=== PATIENT | female | born 1930 | race African-American/Black ===

== ENCOUNTER 2016-08-07 07:17 | Emergency (ER) ==
--- NOTE | 2016-08-07 09:17 | ED EKG INTERP ---
EKG Interpretation - EKG Time of EKG reading by physician:: 08:56 EKG Read and Signed by:: Alfonso Colon EKG Interpretation (*Must complete 3 of following elements*): Abnormal ( nonspecific T wave abnormality) Rate: 48 Rhythm: sinus bradycardia with sinus arrhythmia Comments: minimal voltage criteria for LVH, may be normal variant Attestation - Scribe Verification/Attestation Scribe:: Rosa Fall Acting as Scribe for:: Alfonso Colon Scribe documention review:: This chart was documented by a scribe and accurately reflects the service the provider performed and the decisions made by the provider.
--- NOTE | 2016-08-07 09:55 | PROVIDER DOCUMENTATION ---
HPI-Musculoskeletal Pain/Inj - GENERAL Source: patient - HX OF PRESENT ILLNESS-MUSKULOSKELTAL Quality of Pain: reports: aching Severity in ED: mild Onset/Duration: unsure Timing: still present, intermittent Modifying Factors: improves with: nothing Any recent injury?: No Locality of Occurance: Home Similar Symptoms Previously?: Yes Recently seen or treated by another doctor?: No - FALL INJURY Location of Pain/Injury: reports: none - TRUNK INJURY Location of Injury(s)/Pain: reports: chest (r side), ribs (R side), pelvis (R side) Context / Method of Injury: reports: none Associated Symptoms: reports: arm pain (R), chest pain (R side). denies: nausea /vomiting, shortness of breath, sensory/motor loss, pain with breathing - HIP/PELVIS PAIN/INJURY Hip Pain Location: reports: hip (R) Pain Radiation: reports: feet (R), lower legs (R), upper legs (R) Context / Method of Injury: reports: unknown Associated Symptoms: reports: weakness in legs/feet (R). denies: loss of bladder control, loss of bowel control, lower back pain, muscle spasms, numbness in legs/feet, sensory/motor loss, tingling in legs/feet - LOWER EXTREMITY PAIN/INJURY Lower Extremities Pain: hip: right, leg: right, foot: right Context / Method of Injury: reports: unknown Associated Symptoms: reports: weakness in legs/feet (R). denies: loss of bladder control, loss of bowel control, lower back pain, muscle spasms, numbness in legs/feet, sensory/motor loss, tingling in legs/feet - UPPER EXTREMITY PAIN/INJURY Extremities Pain Location: shoulder: right, arm: right, elbow: right, forearm: right, wrist: right, hand: right Context / Method of Injury: reports: unknown Associated Symptoms: reports: weakness in upper ext (R). denies: muscle spasms , numbness in upper ext, sensory/motor loss, tingling in upper ext <Rosa Fall - Last Filed: 08/07/16 13:11> <Alfonso Colon - Last Filed: 08/07/16 13:13> - GENERAL Chief Complaint: General Adult Stated Complaint: SOB Time Seen by Provider: 08/07/16 08:14 - HX OF PRESENT ILLNESS-MUSKULOSKELTAL Nature of Presenting Problem: Pt is 85 y/o F presents to the ED with R side pain. Pt states pain in multiple places on the R side. Pt denies recent injury or trauma. Pt states walking makes pain in R foot and leg worse. (Rosa Fall) Review of Systems - Adult - REVIEW OF SYSTEMS - ADULT Constitutional: denies: chills, fever Eyes: denies: blurred vision, double vision Ears, Nose, Mouth & Throat: denies: ear pain, nose pain, throat pain Cardiovascular: denies: chest pain, heart murmur, irregular heart rate Respiratory: denies: cough, shortness of breath, wheezing Gastrointestinal: denies: abdominal pain, diarrhea, nausea, vomiting Genitourinary: denies: dysuria, hematuria Musculoskeletal: reports: other (generalized pain on R side of body). denies: bone pain, joint pain, neck pain Integumentary: denies: hives, itching Neurological: denies: dizziness/vertigo, headache/migraines Psychiatric: reports: no symptoms reported Endocrine: reports: no symptoms reported Hematologic/Lymphatic: reports: no symptoms reported Allergic/Immunologic: reports: no symptoms reported All Other Systems: Reviewed and Negative <Rosa Fall - Last Filed: 08/07/16 13:11> Past History - Adult - PAST MEDICAL HISTORY-ADULT Review of Records: reports: Nursing Assessment Review, Medications Reviewed, Social history reviewed & non-contributory. Major Childhood Illnesses: reports: denies history Cardiovascular: reports: HTN Respiratory: reports: denies history Gastrointestinal: reports: denies history Obstetrical/Gynecological: reports: denies history Genitourinary: reports: denies history Musculoskeletal: reports: denies history Neurological: reports: dementia Endocrine/Immune: reports: denies history Other Conditions: reports: denies history - PRIOR SURGERIES/PROCEDURES Surgical/Procedure History: reports: reviewed, not pertinent, hysterectomy - IMMUNIZATION STATUS Childhood Immunizations: See Nurse Assessment Flu Vaccine: See Nurse Assessment - FAMILY HISTORY Family History: reviewed, not pertinent - SOCIAL HISTORY Smoking: quit less than 1 year, cigarettes Substance Use: denies Living Situation: family <Rosa Fall - Last Filed: 08/07/16 13:11> Physical Exam-Injury Related - Physical Exam-Injury Related Initial Vital Signs Reviewed: Yes General Appearance: appears well, alert, mild distress Eyes: PERRL/EOMI, pink conjunctivae, fundi clear, no AV nicking Head, Ears, Nose, Mouth & Throat: normocephalic/atraumatic, moist mucous membranes, normal ENT inspection, TMs normal, pharynx normal Neck: non-tender, full range of motion, supple, normal inspection Respiratory: chest non-tender, lungs clear, normal breath sounds, no pleuratic chest pain, no respiratory distress, no accessory muscle use Cardiovascular: normal peripheral pulses, regular rate, rhythm, no edema, no gallop, no JVD, no murmur Peripheral Pulses: femoral (R): 1+, femoral (L): 2+, dorsalis-pedis (R): 0, dorsalis-pedis (L): 1+ Abdominal Exam: normal bowel sounds, non tender, soft, no organomegaly, no pulsatile mass Lymphatic: no adenopathy Back Exam: normal inspection, no CVA tenderness, no vertebral tenderness Extremity: normal range of motion, non-tender, normal gait, normal inspection, no pedal edema, no calf tenderness Integumentary: normal color, warm/dry Neurologic: assisted living manager II-XII nml as tested, grossly normal, no motor/sensory deficits Psych/Mental Status: normal mood/affect, normal thought content, normal thought process, oriented x 3 <Rosa Fall - Last Filed: 08/07/16 13:11> Progress - ULTRASOUND (By Radiology) 1 US Study: Lower Ext (bilateral) Impression: Normal US Results: vascular deficiency per Dr. Colon <Rosa Fall - Last Filed: 08/07/16 13:11> <Alfonso Colon - Last Filed: 08/07/16 13:13> - PLAN OF CARE/RESULTS Progress/Plan/Lab Results: Orders Category Date Time Status Arterial Bilateral Legs [CV] Stat Ther 08/07/16 08:17 Ordered Vital Signs - 24 hr 08/07/16 08/07/16 07:20 09:07 Temperature 98.5 F Pulse Rate 78 46 L Respiratory 18 20 Rate Blood Pressure 193/92 156/79 O2 Sat by Pulse 100 99 Oximetry Laboratory Tests 08/07/16 12:12 WBC 8.09 RBC 5.12 Hgb 14.7 Hct 45.5 MCV 88.9 MCH 28.7 MCHC 32.3 L RDW Std Deviation 14.9 H Plt Count 231 MPV 10.9 H Immature Gran % (Auto) 0.1 Neut % (Auto) 62.4 Lymph % (Auto) 32.4 Peach % (Auto) 4.0 Eos % (Auto) 1.0 Baso % (Auto) 0.1 Immature Gran # (Auto) 0.01 Neut # (Auto) 5.05 Lymph # (Auto) 2.62 Peach # (Auto) 0.32 Eos # (Auto) 0.08 Baso # (Auto) 0.01 Laboratory Tests 08/07/16 08/07/16 12:12 12:12 WBC 8.09 RBC 5.12 Hgb 14.7 Hct 45.5 MCV 88.9 MCH 28.7 MCHC 32.3 L RDW Std Deviation 14.9 H Plt Count 231 MPV 10.9 H Immature Gran % (Auto) 0.1 Neut % (Auto) 62.4 Lymph % (Auto) 32.4 Peach % (Auto) 4.0 Eos % (Auto) 1.0 Baso % (Auto) 0.1 Immature Gran # (Auto) 0.01 Neut # (Auto) 5.05 Lymph # (Auto) 2.62 Peach # (Auto) 0.32 Eos # (Auto) 0.08 Baso # (Auto) 0.01 Sodium 139 Potassium 4.2 Chloride 102 Carbon Dioxide 28 Anion Gap 9 BUN 18 Creatinine 0.9 Estimated GFR/1.73 m2 60 BUN/Creatinine Ratio 20 Glucose 111 H Calculated Osmolality 280 Calcium 10.5 H Total Bilirubin 0.60 AST 21 ALT 15 Alkaline Phosphatase 109 H Total Protein 7.2 Albumin 4.2 Globulin 3.0 Albumin/Globulin Ratio 1.0 (Rosa Fall) Departure <Rosa Fall - Last Filed: 08/07/16 13:11> - Departure Time of Disposition Order: 13:11 Certified Medical Emergency: Emergent <Alfonso Colon - Last Filed: 08/07/16 13:13> - Departure DIAGNOSIS: Peripheral artery insufficiency Hypertension Qualifiers: Hypertension type: essential hypertension Qualified Code(s): I10 - Essential ( primary) hypertension Disposition: HOME 01 Condition: Stable Additional Instructions: ED Follow Up Instructions: You have been treated by a care provider in the Emergency Department. These instructions are being provided to you so you can have an understanding of how to care for yourself upon discharge. Upon discharge from the Emergency Department, you are responsible for making arrangements for follow-up care by a physician of your choice. Take all prescribed medications as directed. Return to the Emergency Department immediately for any new or worsening symptoms. You may call the Physician Referral phone number at [phone] to obtain a list of Physicians who are taking new patients. Referrals: Amando Box MD [Primary Care Provider] - Attestation - Scribe Verification/Attestation Scribe:: Rosa Fall Acting as Scribe for:: Alfonso Colon Scribe documention review:: This chart was documented by a scribe and accurately reflects the service the provider performed and the decisions made by the provider. <Rosa Fall - Last Filed: 08/07/16 13:11> Physician Attestation
[2016-08-07] MEDS ORDERED: DIOVAN PO ONE (11:54)
[2016-08-07] MEDS ORDERED: NORVASC PO ONE (11:54)
[2016-08-07] MEDS ORDERED: BENICAR ONE (12:08)
[2016-08-07] MEDS ORDERED: BENICAR PO ONE (12:12)
[2016-08-07 12:14] LABS: MANUAL DIFF NEEDED? NO
[2016-08-07 12:18] LABS: BASO% 0.1 % (0.0-0.8); EOS# 0.08 X1000 (0.0-0.7); HEMATOCRIT 45.5 % (37.0-47.0); HEMOGLOBIN 14.7 g/dL (12.0-16.0); IMM GRAN# 0.01 X1000 (0.0-0.04); IMM GRAN% 0.1 % (0.0-0.5); LYMPH# 2.62 X1000 (1.2-3.4); LYMPH% 32.4 % (20.5-51.1); MCH 28.7 PG (27-31); MCHC 32.3 g/dL (33-37); MCV 88.9 FL (81-99); MONO# 0.32 X1000 (0.11-0.59); MPV 10.9 FL (7.4-10.4); NEUT% 62.4 % (42.2-75.2); PLT 231 X1000 (130-400); RBC 5.12 XMIL (4.2-5.4)
[2016-08-07 12:38] LABS: ALBUMIN 4.2 g/dL (3.5-5.0); CALCIUM 10.5 mg/dL (8.8-10.2); POTASSIUM 4.2 mmol/L (3.5-5.1); TOTAL BILIRUBIN 0.6 mg/dL (0.20-1.00); TOTAL PROTEIN 7.2 g/dL (6.3-8.3)
[2016-08-07 13:20] VITALS: BP 175/84
--- NOTE | 2016-08-08 04:51 | VASCULAR LAB ---
PROCEDURE NAME: Arterial Bilateral Legs - 08/07/2016 REFERRING PHYSICIAN: Dr. Colon. OFFICE MACHINES TEACHER: Sylvie Garnica RVT. INDICATIONS: Claudication, bilateral legs. ICD-10 170.213. The patient has a history of high blood pressure. FINDINGS: Systolic brachial blood pressure on the right is 197 mmHg, on the left 195 mmHg. Right high thigh greater than 200 mmHg, left high thigh greater than 200 mmHg. Right low thigh 147 mmHg, left low thigh is greater than 200 mmHg. Right calf 107 mmHg, left calf 182 mmHg. Right ankle 97 mmHg, left ankle 164 mmHg. There is pulsatile flow in both feet and both great toes. At rest, the right ankle-brachial index is 0.49, the left ankle-brachial index is 0.83. INTERPRETATION: Falsely elevated systolic blood pressures in the bilateral lower extremities secondary to calcific arteries. 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
== END 2016-08-07 13:38 | disposition home or self-care (01) ==
LOC: P.ED 07:17
DX: I73.9 Peripheral vascular disease, unspecified (principal); I10 Essential (primary) hypertension; R94.31 Abnormal electrocardiogram [ECG] [EKG]; R07.89 Other chest pain; R07.81 Pleurodynia; M25.551 Pain in right hip; M79.601 Pain in right arm; M79.671 Pain in right foot; M79.661 Pain in right lower leg; M79.651 Pain in right thigh; M62.81 Muscle weakness (generalized); R06.02 Shortness of breath; Z87.891 Personal history of nicotine dependence
CPT/HCPCS: 80053; 85025; 93923; 99284

== ENCOUNTER 2016-08-13 17:06 | Emergency (ER) ==
[2016-08-13 17:24] VITALS: BP 196/80
--- NOTE | 2016-08-13 18:20 | Diag Imaging Result Document ---
PROCEDURE NAME: FLAT/UPRIGHT ABD/1 VIEW CHEST - 08/13/2016 CHEST WITH FLAT AND UPRIGHT, 3 VIEWS: COMPARISON: Chest compared to 09/25/2015. The lungs are well expanded. No pneumonia. No cardiomegaly. No free air beneath the diaphragm. The bowel loops are not dilated. There is a small amount of stool in the colon. No organomegaly. Mild scoliosis with degenerative spine changes. Moderate atherosclerosis. Moderate arthritic changes to the right hip. IMPRESSION: Mild constipation.
[2016-08-13 20:47] LABS: BASO% 0.1 % (0.0-0.8); HEMATOCRIT 47.2 % (37.0-47.0); HEMOGLOBIN 15.3 g/dL (12.0-16.0); IMM GRAN# 0.03 X1000 (0.0-0.04); IMM GRAN% 0.2 % (0.0-0.5); LYMPH# 0.59 X1000 (1.2-3.4); LYMPH% 4.8 % (20.5-51.1); MANUAL DIFF NEEDED? NO; MCH 28.5 PG (27-31); MCHC 32.4 g/dL (33-37); MCV 88.1 FL (81-99); MONO# 0.14 X1000 (0.11-0.59); MONO% 1.1 % (1.7-9.3); MPV 10.9 FL (7.4-10.4); NEUT% 93.8 % (42.2-75.2); PLT 222 X1000 (130-400); RBC 5.36 XMIL (4.2-5.4)
[2016-08-13 21:26] LABS: ALBUMIN 4.4 g/dL (3.5-5.0); CALCIUM 10.6 mg/dL (8.8-10.2); POTASSIUM 3.7 mmol/L (3.5-5.1); TOTAL BILIRUBIN 0.5 mg/dL (0.20-1.00); TOTAL PROTEIN 7.7 g/dL (6.3-8.3)
[2016-08-13 21:29] LABS: URINE SOURCE CLEAN CATCH
[2016-08-13 21:39] LABS: BILIRUBIN URINE NEGATIVE (NEGATIVE); BLOOD URINE 4+ (NEGATIVE); COLOR YELLOW; GLUCOSE URINE NEGATIVE (NEGATIVE); LEUKOCYTES URINE TRACE (NEGATIVE); NITRITE URINE NEGATIVE (NEGATIVE); PROTEIN URINE 2+(100 mg/dL) mg/dL (NEGATIVE); UROBILINOGEN URINE NORMAL
--- NOTE | 2016-08-13 21:51 | PROVIDER DOCUMENTATION ---
HPI-Abdominal Pain/GI Problem - General Chief Complaint: General Adult Stated Complaint: BODY PAIN Time Seen by Provider: 08/13/16 20:00 Source: patient, family Allergies/Adverse Reactions: Patient Allergies Allergy/AdvReac Type Severity Reaction Status Date / Time No Known Allergies Allergy Verified 08/07/16 07:25 Home Medications: Home Medication List Medication Instructions Recorded Confirmed Last Taken Type Acetaminophen with Codeine 0.5 each PO Q6H PRN PRN #14 tablet 09/25/15 Unknown Rx [Tylenol with Codeine #3 Tablet] Triamterene/Hctz [Dyazide] 1 each PO DAILY #30 capsule 09/25/15 Unknown Rx Bisacodyl [Dulcolax] 10 mg NH Q6H PRN PRN #5 supp 08/13/16 Unknown Rx Ondansetron Odt [Zofran 8Mg Odt] 8 mg PO Q8H PRN PRN #20 tablet 08/13/16 Unknown Rx Phenazopyridine HCl [Pyridium] 100 mg PO TID #6 tablet 08/13/16 Unknown Rx Sulfamethoxazole/Trimethoprim 1 each PO BID #14 tablet 08/13/16 Unknown Rx [Bactrim Ds Tablet] - History of Present Illness-ABD Nature of Presenting Problems: 85 yof c/o lower abd pain with nausea and vomiting, with constipation. Pt continues to get worse. Abdominal Pain Onset Location: reports: RLQ, LLQ, suprapubic, flank Pain Radiation: reports: no radiation Quality of Pain: reports: aching, burning, sharp. denies: none, cramping, dull , fullness, indigestion, pressure, stabbing, tearing, throbbing, tightness, other Severity in ED: reports: moderate Onset/Duration: reports: 4 days ago Timing: reports: still present, getting worse Activities at Onset: reports: none Exposure to sick contacts?: No Modifying Factors: improves with: nothing Associated Symptoms: reports: constipation, nausea Last BM: this morning (but very small amount) Dark Stools Present?: reports: none noticed Rectal Bleeding: reports: none # of Diarrhea Episodes: 0 Rectal Pain: reports: none # of Vomiting Episodes: 0 Emesis Description: reports: none Bruising or Bleeding Gums?: No Similar Symptoms Previously?: No Recently seen or treated by another doctor?: No Review of Systems - Adult - REVIEW OF SYSTEMS - ADULT Constitutional: reports: see HPI. denies: no symptoms reported, chills, fever, fatique, night sweats, weight gain, weight loss, other Eyes: reports: no symptoms reported. denies: see HPI, discharge, dry eyes, decreased vision, blurred vision, double vision, eye pain, redness, other Ears, Nose, Mouth & Throat: reports: no symptoms reported. denies: see HPI, ear discharge, ear pain, hearing loss, tinnitus, epistaxis, sinus problem, nose pain, loose teeth, mouth/dental pain, mouth swelling, hoarseness, throat pain, throat swelling, other Cardiovascular: reports: no symptoms reported. denies: see HPI, chest pain, edema, heart murmur, irregular heart rate, orthopnea, palpitations, poor circulation, PND, syncope, other Respiratory: reports: no symptoms reported. denies: see HPI, chronic cough, cough, dyspnea on exertion, excessive sputum production, hemoptysis, pleurisy, shortness of breath, wheezing, other Gastrointestinal: reports: see HPI, abdominal pain, constipation, nausea, poor appetite. denies: no symptoms reported, hematemesis, diarrhea, difficulty swallowing, frequent heartburn, rectal bleeding, vomiting, other Genitourinary: reports: see HPI, flank pain, urgency. denies: no symptoms reported, dysuria, discharge, frequency, frequent UTI's, hematuria, hesitency, incontinence, urinary retention, other Musculoskeletal: reports: no symptoms reported. denies: see HPI, bone pain, back pain, frequent leg cramps, joint pain, joint swelling, muscle aches, muscle weakness, neck pain, other Integumentary: reports: no symptoms reported. denies: see HPI, hives, hair loss , itching, mole changes, nail changes, rash, skin sores/ulcer, skin thickening, other Neurological: reports: no symptoms reported. denies: see HPI, ataxia, dizziness /vertigo, headache/migraines, loss of balance, numbness, paresthesia, seizure, slurred speech, syncope, tremors, other All Other Systems: Reviewed and Negative Past History - Adult - PAST MEDICAL HISTORY-ADULT Review of Records: reports: Old Records Reviewed, Nursing Assessment Review, Medications Reviewed, Social history reviewed & non-contributory. Major Childhood Illnesses: reports: denies history Cardiovascular: reports: HTN Respiratory: reports: denies history Gastrointestinal: reports: denies history Obstetrical/Gynecological: reports: denies history Genitourinary: reports: denies history Musculoskeletal: reports: denies history Neurological: reports: dementia Endocrine/Immune: reports: denies history Other Conditions: reports: denies history - PRIOR SURGERIES/PROCEDURES Surgical/Procedure History: reports: reviewed, not pertinent, hysterectomy - IMMUNIZATION STATUS Childhood Immunizations: See Nurse Assessment Flu Vaccine: See Nurse Assessment - FAMILY HISTORY Family History: reviewed, not pertinent Physical Exam-General - PHYSICAL EXAM-ADULT Initial Vital Signs Reviewed: Yes - CONSTITUTIONAL General Appearance: appears well, alert, no apparent distress - EYES Eyes: PERRL/EOMI, pink conjunctivae. negative: fundi clear, no AV nicking, anisocoria, conjuctival exudate, EOM palsy, meningismus, pale conjunctivae, photophobia, sclera injected, scleral icterus, subconjunctival hemorrhage, sunken eyes, other - HEAD, EARS, NOSE, MOUTH & THROAT HENMT: normocephalic/atraumatic, moist mucous membranes, normal ENT inspection, TMs normal, pharynx normal. negative: angioedema, dental decay, hearing deficit , pharyngeal erythema, tonsillar exudate, TM abnormal, TM obscurred by cerumen, frontal tenderness, maxillary tenderness, other - NECK Neck: non-tender, full range of motion, supple, normal inspection. negative: Brudzinski's sign, carotid bruit, C-spine tenderness, limited range of motion, lymphadenopathy, meningismus, trachial deviation, tender lateral, tender midline , thyromegaly, other - RESPIRATORY Respiratory: chest non-tender, lungs clear, normal breath sounds, no pleuratic chest pain, no respiratory distress, no accessory muscle use. negative: respiratory distress, decreased breath sounds, accessory muscle use, crackles, rales, rhonchi, stridor, wheezing, dull on percussion, prolonged expiration, pain on inspiration, plerual rub, retractions, splinting, decreased rate, increased rate, crepitus, other - CARDIOVASCULAR Cardiovascular: normal peripheral pulses, regular rate, rhythm, no edema, no gallop, no JVD, no murmur. negative: JVD, bradycardia, tachycardia, diastolic murmur, systolic murmur, gallop/S3, gallop/S4, extra beats, friction rub, irregularly irregular, PMI displaced laterally, other - CHEST (BREASTS) Chest/Breast: deferred - GASTROINTESTINAL (ABDOMEN) Abdominal Exam: normal bowel sounds, soft, no organomegaly, no pulsatile mass, tenderness. negative: non tender, abdominal bruit, abnormal bowel sounds, distended, guarding, rigid, rebound, hernia, mass, hepatomegaly, spleenomegaly, McBurney's point tenderness, Kingston's sign, obturator sign, prominent aortic pulsations, psoas, Rovsing's sign, other - GENITOURINARY Female Genitalia/Pelvic Exam: deferred Rectal Exam: deferred Hemoccult Exam: deferred - LYMPHATIC Lymphatic: no adenopathy. negative: axilla node tender, cervical node tenderness, inguinal node tender, enlargement, striations, streaking, other - MUSCULOSKELETAL Back Exam: normal inspection, no CVA tenderness, no vertebral tenderness Extremity: normal range of motion, non-tender, normal gait, normal inspection, no pedal edema, no calf tenderness, normal capillary refill. negative: pelvis stable, abnormal NV exam, calf tenderness, deformity, erythema, inflammation, joint effusion, pulse deficit, pedal edema, slow capillary refill, swelling, tenderness, other - SKIN Integumentary: normal color, normal turgor, warm/dry. negative: abrasion(s), blanching, cyanosis, diaphoresis, decubitus, dependent lividity, ecchymosis, embolic lesions, erythema, signs of IVDA, jaundice, laceration(s), mottled, pallor, petechiae, purpura, rash, swelling, tenderness, warm, zoster-like rash, other - NEUROLOGIC Neurologic: grossly normal - PSYCHIATRIC Psych/Mental Status: oriented x 3 Progress - PLAN OF CARE/RESULTS Progress/Plan/Lab Results: Laboratory Tests 08/13/16 08/13/16 08/13/16 17:20 17:20 20:31 WBC RBC Hgb Hct MCV MCH MCHC RDW Std Deviation Plt Count MPV Immature Gran % (Auto) Neut % (Auto) Lymph % (Auto) [place] % (Auto) Eos % (Auto) Baso % (Auto) Immature Gran # (Auto) Neut # (Auto) Lymph # (Auto) [place] # (Auto) Eos # (Auto) Baso # (Auto) Sodium 139 Potassium 3.7 Chloride 102 Carbon Dioxide 25 Anion Gap 12 BUN 15 Creatinine 1.1 H Estimated GFR/1.73 m2 47 BUN/Creatinine Ratio 14 Glucose 144 H Calculated Osmolality 281 Calcium 10.6 H Total Bilirubin 0.50 AST 33 H ALT 20 Alkaline Phosphatase 116 H Total Protein 7.7 Albumin 4.4 Globulin 3.0 Albumin/Globulin Ratio 1.0 Amylase 100 Lipase 40 Urine Source Urine Color Urine Clarity Urine pH Ur Specific [place] Urine Protein Urine Ketones Urine Blood Urine Nitrite Urine Bilirubin Urine Urobilinogen Urine Microscopic RBC Urine WBC Urine Microscopic WBC Ur Epithelial Cells Urine Bacteria Urine Glucose Influenza A (Rapid) NEGATIVE Influenza B (Rapid) NEGATIVE Group A Strep Rapid NEGATIVE 08/13/16 08/13/16 20:31 21:08 WBC 12.31 H RBC 5.36 Hgb 15.3 Hct 47.2 H MCV 88.1 MCH 28.5 MCHC 32.4 L RDW Std Deviation 14.8 H Plt Count 222 MPV 10.9 H Immature Gran % (Auto) 0.2 Neut % (Auto) 93.8 H Lymph % (Auto) 4.8 L [place] % (Auto) 1.1 L Eos % (Auto) 0.0 Baso % (Auto) 0.1 Immature Gran # (Auto) 0.03 Neut # (Auto) 11.54 H Lymph # (Auto) 0.59 L [place] # (Auto) 0.14 Eos # (Auto) 0.00 Baso # (Auto) 0.01 Sodium Potassium Chloride Carbon Dioxide Anion Gap BUN Creatinine Estimated GFR/1.73 m2 BUN/Creatinine Ratio Glucose Calculated Osmolality Calcium Total Bilirubin AST ALT Alkaline Phosphatase Total Protein Albumin Globulin Albumin/Globulin Ratio Amylase Lipase Urine Source CLEAN CATCH Urine Color YELLOW Urine Clarity CLOUDY A Urine pH 6.0 Ur Specific [place] 1.020 Urine Protein 2+(100 mg/dL) A Urine Ketones NEGATIVE Urine Blood 4+ Urine Nitrite NEGATIVE Urine Bilirubin NEGATIVE Urine Urobilinogen NORMAL Urine Microscopic RBC 20-40 A Urine WBC TRACE A Urine Microscopic WBC <10 Ur Epithelial Cells <10 Urine Bacteria 2+ Urine Glucose NEGATIVE Influenza A (Rapid) Influenza B (Rapid) Group A Strep Rapid Orders Category Date Time Status Saline Loc DIRECTED Care 08/13/16 20:03 Active NPO Diet 08/13/16 20:03 Completed FLAT/UPRIGHT ABD/1 VIEW CHEST [RAD] Stat Exams 08/13/16 17:24 Completed AMYLASE [CHEM] Stat Lab 08/13/16 20:31 Completed CBC WITH ELECTRONIC DIFF [HEME] Stat Lab 08/13/16 20:31 Completed COMPREHENSIVE METABOLIC PANEL [CHEM] Stat Lab 08/13/16 20:[address] Stat Lab 08/13/16 17:[address] Stat Lab 08/13/16 17:20 Completed LIPASE [CHEM] Stat Lab 08/13/16 20:[address] W/POSS RFLX CULT [URINALYSIS] Stat Lab 08/13/16 21:08 Completed URINE CULTURE [RM] Routine Lab 08/13/16 21:57 Received Sulfamethoxazole/Tmp D.s. [Septra Ds] Med 08/13/16 21:58 Discontinued 1 each PO NOW ONE Vital Signs Temp Pulse Resp BP Pulse Ox 08/13/16 17:17 98.3 F 71 18 196/80 98 No Known Allergies Allergy (Verified 08/07/16 07:25) Acetaminophen with Codeine [Tylenol with Codeine #3 Tablet] 0.5 each PO Q6H PRN PRN #14 tablet 09/25/15 Triamterene/Hctz [Dyazide] 1 each PO DAILY #30 capsule 09/25/15 Bisacodyl [Dulcolax] 10 mg NH Q6H PRN PRN #5 supp 08/13/16 Ondansetron Odt [Zofran 8Mg Odt] 8 mg PO Q8H PRN PRN #20 tablet 08/13/16 Phenazopyridine HCl [Pyridium] 100 mg PO TID #6 tablet 08/13/16 Sulfamethoxazole/Trimethoprim [Bactrim Ds Tablet] 1 each PO BID #14 tablet 08/13 Laboratory 08/13/16 08/13/16 08/13/16 21:08 20:31 20:31 WBC 12.31 H RBC 5.36 Hgb 15.3 Hct 47.2 H MCV 88.1 MCH 28.5 MCHC 32.4 L RDW Std Deviation 14.8 H Plt Count 222 MPV 10.9 H Immature Gran % (Auto) 0.2 Neut % (Auto) 93.8 H Lymph % (Auto) 4.8 L [place] % (Auto) 1.1 L Eos % (Auto) 0.0 Baso % (Auto) 0.1 Immature Gran # (Auto) 0.03 Neut # (Auto) 11.54 H Lymph # (Auto) 0.59 L [place] # (Auto) 0.14 Eos # (Auto) 0.00 Baso # (Auto) 0.01 Sodium 139 Potassium 3.7 Chloride 102 Carbon Dioxide 25 Anion Gap 12 BUN 15 Creatinine 1.1 H Estimated GFR/1.73 m2 47 BUN/Creatinine Ratio 14 Glucose 144 H Calculated Osmolality 281 Calcium 10.6 H Total Bilirubin 0.50 AST 33 H ALT 20 Alkaline Phosphatase 116 H Total Protein 7.7 Albumin 4.4 Globulin 3.0 Albumin/Globulin Ratio 1.0 Amylase 100 Lipase 40 Urine Source CLEAN CATCH Urine Color YELLOW Urine Clarity CLOUDY A Urine pH 6.0 Ur Specific [place] 1.020 Urine Protein 2+(100 mg/dL) A Urine Ketones NEGATIVE Urine Blood 4+ Urine Nitrite NEGATIVE Urine Bilirubin NEGATIVE Urine Urobilinogen NORMAL Urine Microscopic RBC 20-40 A Urine WBC TRACE A Urine Microscopic WBC <10 Ur Epithelial Cells <10 Urine Bacteria 2+ Urine Glucose NEGATIVE Influenza A (Rapid) Influenza B (Rapid) Group A Strep Rapid 08/13/16 08/13/16 17:20 17:20 WBC RBC Hgb Hct MCV MCH MCHC RDW Std Deviation Plt Count MPV Immature Gran % (Auto) Neut % (Auto) Lymph % (Auto) [place] % (Auto) Eos % (Auto) Baso % (Auto) Immature Gran # (Auto) Neut # (Auto) Lymph # (Auto) [place] # (Auto) Eos # (Auto) Baso # (Auto) Sodium Potassium Chloride Carbon Dioxide Anion Gap BUN Creatinine Estimated GFR/1.73 m2 BUN/Creatinine Ratio Glucose Calculated Osmolality Calcium Total Bilirubin AST ALT Alkaline Phosphatase Total Protein Albumin Globulin Albumin/Globulin Ratio Amylase Lipase Urine Source Urine Color Urine Clarity Urine pH Ur Specific [place] Urine Protein Urine Ketones Urine Blood Urine Nitrite Urine Bilirubin Urine Urobilinogen Urine Microscopic RBC Urine WBC Urine Microscopic WBC Ur Epithelial Cells Urine Bacteria Urine Glucose Influenza A (Rapid) NEGATIVE Influenza B (Rapid) NEGATIVE Group A Strep Rapid NEGATIVE - XRAY 1 XRAY Study: Chest, Abdomen Impression: Abnormal (Mild constipation per Radiologist.) Departure - Departure Time of Disposition Order: 21:48 DIAGNOSIS: UTI (urinary tract infection) Qualifiers: Urinary tract infection type: site unspecified Hematuria presence: with hematuria Qualified Code(s): N39.0 - Urinary tract infection, site not specified Constipation Qualifiers: Constipation type: unspecified constipation type Qualified Code(s): K59.00 - Constipation, unspecified Disposition: HOME 01 Certified Medical Emergency: Emergent Condition: Stable Additional Instructions: ED Follow Up Instructions: You have been treated by a care provider in the Emergency Department. These instructions are being provided to you so you can have an understanding of how to care for yourself upon discharge. Upon discharge from the Emergency Department, you are responsible for making arrangements for follow-up care by a physician of your choice. Take all prescribed medications as directed. Return to the Emergency Department immediately for any new or worsening symptoms. You may call the Physician Referral phone number at [phone] to obtain a list of Physicians who are taking new patients. Prescriptions: Sulfamethoxazole/Trimethoprim [Bactrim Ds Tablet] 1 each PO BID #14 tablet Bisacodyl [Dulcolax] 10 mg [place] Q6H PRN PRN #5 supp PRN Reason: Constipation Phenazopyridine HCl [Pyridium] 100 mg PO TID #6 tablet Ondansetron Odt [Zofran 8Mg Odt] 8 mg PO Q8H PRN PRN #20 tablet PRN Reason: Nausea Referrals: Mark Cash MD [STAFF PHYSICIAN] - Instructions: Ondansetron tablets, Constipation, Adult, [id number], Phenazopyridine tablets, Bisacodyl suppositories, Urinary Tract Infection, Easy- to-Read, Sulfamethoxazole; Trimethoprim, SMX-TMP tablets Attestation - Physician/ CHASITY Attestation Patient care was provided by Advanced Practice Provider:: Yes Advanced Practice Provider:: Rafael Oneil Advanced Practice Provider documentation review:: The Mid-level provider documentation, treatment plan and medical decision making was reviewed by the physician who agrees with all treatment and medical decision making by the [facility]. Physician Attestation - Physician Attestation I, the provider, attest to the following statement:: Rafael Oneil Physician documentation Attestation:: This documentation recorded by the scribe accurately reflects the service I personally performed and the decisions made by me.
[2016-08-13 21:54] LABS: CLARITY CLOUDY (CLEAR)
[2016-08-13 21:57] LABS: URINE CULTURE PL NEEDED? YES; URINE EPITHELIAL CELLS <10 /HPF (<10); URINE RBC 20-40 /HPF (<10); URINE WBC <10 /HPF (<10)
[2016-08-13] MEDS ORDERED: SEPTRA DS PO ONE (21:58)
== END 2016-08-13 22:09 | disposition home or self-care (01) ==
LOC: P.ED 17:06
DX: N39.0 Urinary tract infection, site not specified (principal); K59.00 Constipation, unspecified; R10.31 Right lower quadrant pain; R10.32 Left lower quadrant pain; R10.9 Unspecified abdominal pain; R11.2 Nausea with vomiting, unspecified; R39.15 Urgency of urination; I10 Essential (primary) hypertension
CPT/HCPCS: 74022; 80053; 81001; 82150; 83690; 85025; 87081; 87088; 87430; 87804